=== PATIENT | male | born 1965 | race Caucasian/White ===

== ENCOUNTER 2018-11-14 19:57 | Emergency (ER) | payer OTHER, SELFPAY ==
[2018-11-14 19:58] VITALS: BP 137/75; PULSE 81; RESP 18; TEMP 36.6; O2SAT 100; BMI 29.2
[2018-11-14 20:04] LABS: Bacteria 0 SEEN /hpf (None Seen); Mucous, Urine 0 SEEN /hpf (<or=2+); White Blood Cells 0 SEEN /hpf (0-5)
[2018-11-14 20:08] LABS: Color, Urine Yellow (Yellow); Glucose, Dipstick Normal (Normal); Ketone-Dipstick 15 mg/dl (Negative); Leukocyte Esterase-Dipstick Negative /ul (Negative); Nitrite-Dipstick Negative (Negative); Occult Blood-Urine 10 /ul (Negative); Protein-Dipstick Negative (Negative); Specific Gravity, Urine 1.015 (1.002-1.030); Urine Bilirubin Dipstick Negative (Negative); Urine Clarity Sl. Cloudy (Clear); Urine Urobilinogen Normal (Normal)
[2018-11-14 20:25] LABS: Red Blood Cells-Urine 0-5 SEEN /hpf (0-5); Squamous Epithelial Cells - UA 0-5 SEEN /hpf (0-5)
--- NOTE | 2018-11-14 20:35 | CT_ITS ---
STUDY: CT ABDOMEN AND PELVIS WITHOUT CONTRAST REASON FOR EXAM: Male, 53 years old. Right flank pain. History of kidney stones RADIATION DOSAGE (If Supplied By Facility): CTDIvol = ( 12.00 ) mGy, DLP = ( 632.61 ) mGycm TECHNIQUE: Transaxial images were obtained from the dome of the diaphragm to the symphysis pubis without oral contrast, and without intravenous contrast. Sagittal and coronal images were reconstructed. Individualized dose optimization techniques were used for this CT. COMPARISON: None. FINDINGS: The visualized lung bases are unremarkable. The visualized portions of the heart are within normal limits. Normal liver. Normal gallbladder and extrahepatic biliary system. There is a benign calcified granuloma of the spleen. Normal pancreas. Normal bilateral adrenal glands. Right kidney is of normal size and cortical thickness. There are multiple nonobstructing renal calculi throughout the kidney. The largest in the lower pole measures 4 mm There is mild right hydronephrosis and ureteral dilatation to the ureter where there is nonobstructing 4 x 3 cm calculus (image 151, series 2) slightly superiorly there is a smaller calcification which may lie in or adjacent to the right ureter. The left kidney is of normal size and cortical thickness. There is multiple nonobstructing renal calculi. The largest, in the upper pole, measures 5 mm in diameter. There is no hydronephrosis. Normal visualized left ureter. Normal visualized stomach. Normal small intestine. Normal colon. The appendix is visualized and appears normal. Normal abdominal aorta. Normal inferior vena cava. Normal retroperitoneum. Normal urinary bladder. Normal prostate. There is no pelvic lymphadenopathy is a focal calcification mesentery adjacent to the sigmoid colon. No free air or free fluid is seen within the peritoneal cavity. Left inguinal hernia of omental fat. Umbilical hernia of omental fat. There are diffuse degenerative changes of the visualized lumbar spine. CT/Abdomen/Pelvis without Cont IMPRESSION: 1. Right UVJ calculus with mild to moderate obstructive uropathy. 2. Multiple bilateral nonobstructing renal calculi. 3. Degenerative changes of the lumbar spine. 4. L-spine granuloma in the spleen. Electronically Signed: Luis Tadeo DO at 21:10 EDT Tel [phone], Service support ,
[2018-11-14 20:40] LABS: Absolute Lymphocyte Count 1.78 X10^3/uL (0.83-4.51); Absolute Neutrophil Count 5.5 X10^3/uL (2.0-7.7); Basophil# 0.04 X10^3/uL; Basophil% 0.5 % (0-1); Eosinophil# 0.05 X10^3/uL; Eosinophils% 0.6 % (0-5); Hematocrit 40.4 % (40-54); Hemoglobin 13.4 g/dL (13.0-16.5); Lymphocyte # 1.78 X10^3/ul (4.0); Lymphocyte % 21.8 % (19-41); Mean Corp Hgb Conc 33.2 g/dL (32-36); Mean Corpuscular Hgb 30.5 pg (27.0-32.0); Mean Corpuscular Volume 91.8 fL (80-94); Mean Platelet Vol. 9.8 fl (6.2-12.0); Monocyte# 0.79 X10^3/uL; Monocyte% 9.7 % (0-10); NRBC Flagged by Analyzer 0 % (0-5); Neutrophil % 67.2 % (47-70); Platelet Count 215 K/mm3 (150-450); RBC Distribution Width CV 11.9 % (11.6-14.6); RBC Distribution Width SD 40.6 fl (35.1-43.9); White Blood Count 8.2 K/mm3 (4.4-11.0)
--- NOTE | 2018-11-14 20:46 | ED.VIS.GEN ---
History of Present Illness Chief Complaint: Flank Pain Informant: Patient Onset: Days - Onset 1 day November 11 Context: Sudden Onset Timing: Continuous, Waxes and wanes Quality: Pain and burning Location: Pain in the flank burning suprapubic Current Severity: Mild Maximum Severity: Severe Worsened by: Nothing Relieved by: Much improved with ibuprofen Associated Symptoms: Nausea Narrative: Patient is a 53-year-old male with no sniffing past medical history other than renal/ureteral lithiasis. He states he is past 20 stones. He is never had a CAT scan. He states this pain is different and persistent. He also complains of suprapubic burning sensation. The burning sensation not associated with urination. He denies fever chills. Does report nausea without vomiting. He denies cardiac respiratory symptoms. There is no history of trauma. He has no other complaints. Prior similar symptoms: Yes Recent Illness/Hospitalization: No - Past Medical History (1) Renal and ureteric calculus Status: Acute Past Medical History - Allergies and Home Meds Allergies/Adverse Reactions: Allergies No Known Allergies Allergy (Verified 11/14/18 20:00) Primary Care Physician: Fuad Landon MD [Primary Care Provider] - Prior records reviewed: No Past Medical History: - - Multiple kidney stones Surgical History: no surgical history Lives: Alone Smoking Status: Never smoker Alcohol: None Drugs: None Review of Systems General: Denies: Chills, Fever, Sweats Cardiovascular: Denies: Chest pain, Palpitations Respiratory: Denies: Dyspnea, Cough, Dyspnea on exertion Gastrointestinal: Reports: Abdominal pain, Nausea. Denies: Vomiting, Diarrhea, Constipation, Melena, Hematochezia, -, - Genitourinary: Denies: Dysuria, Hematuria, Frequency Musculoskeletal: Reports: Back pain. Denies: Myalgias, Arthralgias, Neck pain, Swelling, Extremity Pain, -, - Skin: Denies: Rash, Wounds Neurological: Denies: Headache, Weakness, Numbness Allergy: Denies: Uticaria, Swelling of the mouth, Swelling of the tongue Physical Exam Vital Signs/Narrative: Vital Signs Temp Pulse Resp BP Pulse Ox 11/14/18 19:58 97.9 F 81 18 137/75 H 100 Inital Vital Signs reviewed: Yes General: Well nourished, Well developed, - - Slightly uncomfortable Head: Normocephalic, Atraumatic Eyes: Perrl, EOMI ENT: Moist mucous membranes, No rhinorrhea Neck: Supple, Nontender, No lymphadenopathy, No JVD Cardiovascular: Regular rate, Regular rhythm, No murmurs, Normal S1, Normal S2 Respiratory: No distress, CTA bilaterally, Chest nontender Abdomen: Soft, Nontender, Nondistended, Normal bowel sounds Back: Nontender, Normal Inspection. Negative for: CVA tenderness Extremities: Nontender, No edema Skin: Normal color, No rash Neurological: Alert, Oriented x3, Cranial nerves II-XII grossly intact, Normal Strength, Normal Sensation, Normal Gait Psychological: Normal affect, Normal Mood Diagnostic/Tx/Re-eval Impressions Abdomen/Pelvis CT 11/14/18 20:35 IMPRESSION: 1. Right UVJ calculus with mild to moderate obstructive uropathy. 2. Multiple bilateral nonobstructing renal calculi. 3. Degenerative changes of the lumbar spine. 4. L-spine granuloma in the spleen. Electronically Signed: Luis Tadeo DO at 21:10 EDT Tel [phone], Service support , 11/14/18 20:35 Abdomen/Pelvis without Cont [CT] Stat Laboratory Results 11/14/18 11/14/18 11/14/18 20:00 20:20 20:20 WBC 8.2 RBC 4.40 L Hgb 13.4 Hct 40.4 MCV 91.8 MCH 30.5 MCHC 33.2 RDW Std Deviation 40.6 RDW Coeff of Aliya 11.9 Plt Count 215 MPV 9.8 Immature Gran % (Auto) 0.200 Neut % (Auto) 67.2 Lymph % (Auto) 21.8 [place] % (Auto) 9.7 Eos % (Auto) 0.6 Baso % (Auto) 0.5 Absolute Neuts (auto) 5.5 Absolute Lymphs (auto) 1.78 Nucleated RBC % 0 Sodium 138 Potassium 3.9 Chloride 106 Carbon Dioxide 27.0 Anion Gap 5 BUN 23 H Creatinine 1.83 H Estim Creat Clear Calc 50.29 Est GFR (MDRD) Af Amer 50 L Est GFR (MDRD) Non-Af 42 L BUN/Creatinine Ratio 12.6 Glucose 105 Calcium 9.0 Urine Color Yellow Urine Clarity Sl. Cloudy Urine pH 6.0 Ur Specific [place] 1.015 Urine Protein Negative Urine Glucose (UA) Normal Urine Ketones 15 H Urine Occult Blood 10 H Urine Nitrite Negative Urine Bilirubin Negative Urine Urobilinogen Normal Ur Leukocyte Esterase Negative Urine RBC 0-5 SEEN Urine WBC 0 SEEN Ur Squamous Epith Cells 0-5 SEEN Urine Bacteria 0 SEEN Urine Mucus [address] of the abdomen pelvis without contrast reveals a right UVJ stone which is the stone causing his symptoms. There is also multiple bilateral renal calculi noted. Of concern his creatinine is elevated to 1.83 with a GFR of 42. He states he took 3 ibuprofen tablets yesterday and 3 ibuprofen tablets today. One would not expect a total of 600 mg/day causing acute renal failure. Since there is only one small obstructing stone would not expect his creatinine to be elevated from 23. Since he has no medical problems he was instructed to follow-up with Dr. Anthony Merrill his primary care physician for outpatient testing and possible referral to nephrology. He was referred to urology with regards to the obstructing right UVJ stone and prescribed opiate analgesia since NSAIDs are contraindicated. - Medical Decision Making With persistent pain and burning with urination will obtain UA and appropriate blood work. Since he is never had a CAT scan and this pain is worse and more persistent will obtain CT of the abdomen pelvis without contrast to assess if there is a stone and more importantly the size and location. He declined pain medicine. Since an IV was not ordered he was given Zofran 4 mg ODT for his nausea. Charged home with referral to PCP for further testing to evaluate elevated creatinine and urology for his obstructing right UVJ stone and multiple bilateral renal calculi. ED Disposition - Plan for ED Patient: Disposition: Home or Assisted Living Diagnosis: Hydronephrosis with urinary obstruction due to ureteral calculus, Acute renal insufficiency Instructions: KIDNEY STONE w/ Colic, Renal Insufficiency Prescriptions: Oxycodone HCl/Acetaminophen [Percocet 5/325] 1 tab PO Q6H PRN PRN 5 Days #20 tab PRN Reason: Pain Score 1-10/10 Prescription Printed Referrals: Fuad Landon MD [Primary Care Provider] - 1 Week Jamar Colon MD [STAFF PHYSICIAN] - 5-7 Days
[2018-11-14 20:49] LABS: Anion Gap 5 (5-15); BUN 23 mg/dL (7-18); BUN/Creat Ratio 12.6 RATIO (10-20); Chloride 106 mmol/L (98-107); Creatinine, Serum 1.83 mg/dL (0.70-1.30); EST Glomerular Filtration Rate 42 mL/min (>60); Est Glom Filt Rate - Afr Amer 50 mL/min (>60); Estimated Creatinine Clearance 50.29 ml/min; Glucose 105 mg/dL (74-106); Potassium 3.9 mmol/L (3.5-5.1); Sodium Level 138 mmol/L (136-145)
[2018-11-14 22:13] VITALS: BP 133/85; PULSE 76; RESP 16; O2SAT 98
--- NOTE | 2018-11-14 22:13 | ED.RN ---
REVIEWED D/C INSTRUCTIONS, FOLLOW UP CARE, PRESCRIPTIONS, AND S/S THAT WOULD WARRANT A RETURN TO THE ED WITH PT. PT VERBALIZED AN UNDERSTANDING AND DENIES FURTHER QUESTIONS FOR THIS RN. PT SKIN P/W/D, RESP EVEN AND UNLABORED, PT A&O X 3, NO DISTRESS NOTED. PT AMBULATED OUT OF ED, GAIT STEADY.
== END 2018-11-14 22:14 | disposition home or self-care (01) ==
PROVIDERS: Emergency Provider Emergency Medicine; Family Provider Family Medicine; PCP Family Medicine
DX: N13.2 Hydronephrosis with renal and ureteral calculous obstruction (principal); N28.9 Disorder of kidney and ureter, unspecified; Z87.442 Personal history of urinary calculi
CPT/HCPCS: 74176; 80048; 81001; 85025; 99283; A4216

== ENCOUNTER 2022-02-22 18:26 | Emergency (ER) | payer BC, SELFPAY ==
[2022-02-22 18:27] VITALS: BP 171/92; PULSE 108; RESP 16; TEMP 35.8; O2SAT 98; BMI 30.9
--- NOTE | 2022-02-22 21:28 | EKG12_ITS ---
Test Reason : DYSRHYTHMIA Blood Pressure : / mmHG Vent. Rate : 107 BPM Atrial Rate : 107 BPM P-R Int : 146 ms QRS Dur : 108 ms QT Int : 336 ms P-R-T Axes : 050 071 039 degrees QTc Int : 448 ms Sinus tachycardia Otherwise normal ECG Confirmed by BERTA SANDOVAL, STAN ([id number]), multimedia editor [employer] ([id number]) on 02/24/2022 6:36:39 AM Referred By: ARSLAN Confirmed By:ZANA HAMPTON MD
--- NOTE | 2022-02-22 21:28 | CT_ITS ---
EXAM: CT ANGIOGRAPHY CHEST, ABDOMEN AND PELVIS WITH INTRAVENOUS CONTRAST CLINICAL INDICATION: back and left extremity pain/weakness TECHNIQUE: Helically acquired angiography images were obtained of the chest, abdomen and pelvis with intravenous contrast. CTDIvol = ( 13.55 ) mGy, DLP = ( 1143.14 ) mGycm This CT exam was performed using one or more of the following dose reduction techniques: automated exposure control, adjustment of the mA and/or kV according to patient size, and/or use of iterative reconstruction technique. This report was created using [employer] report generation technology. MIP reconstructed images were created and reviewed. CONTRAST: IV 100mL Isovue-370 COMPARISON: None. FINDINGS: VASCULATURE: AORTA: No aortic dissection or aneurysm. PULMONARY ARTERIES: No PE. Normal in caliber. No obvious central pulmonary embolism although this study was not performed with the pulmonary embolism protocol. GREAT VESSELS OF AORTIC ARCH: Unremarkable. Normal in caliber. No dissection. CELIAC TRUNK AND MESENTERIC ARTERIES: No acute findings. No occlusion or significant stenosis. No dissection. RENAL ARTERIES: No acute findings. No occlusion or significant stenosis. No dissection. ILIAC ARTERIES: No acute findings. No occlusion or significant stenosis. No dissection. CHEST: LUNGS AND PLEURAL SPACES: No consolidation. Small calcified granuloma at the left lower lobe. No mass. No pleural effusion or thickening. No pneumothorax. HEART: Unremarkable. Heart size is normal. No pericardial effusion. MEDIASTINUM: Unremarkable. No mediastinal or hilar adenopathy. Esophagus is unremarkable. No hiatal hernia. THYROID: Unremarkable. No thyroid lesions. ABDOMEN: LIVER: Hepatic steatosis. Homogeneous. No focal mass. GALLBLADDER AND BILE DUCTS: Unremarkable. No calcified gallstones. No gallbladder distention or wall edema. No intra- or extrahepatic biliary ductal dilation. PANCREAS: Unremarkable. No focal cystic or solid mass. SPLEEN: Unremarkable. Normal size without focal cystic or solid mass. ADRENALS: Unremarkable. No nodules. KIDNEYS AND URETERS: 6 mm nonobstructing calyceal calculus at the left interpolar level. Other smaller left and right renal calyceal calculi are nonobstructing also. No other renal abnormalities. STOMACH AND BOWEL: Unremarkable. No stomach or bowel distention. No focal inflammatory change. PELVIS: APPENDIX: No evidence of acute appendicitis. BLADDER: Unremarkable. REPRODUCTIVE: Unremarkable as visualized. No mass. CHEST, ABDOMEN and PELVIS: INTRAPERITONEAL SPACE: Unremarkable. No ascites or other fluid collection. No free air. BONES/JOINTS: Degenerative changes of the spine. No suspicious lytic or blastic abnormality. SOFT TISSUES: Small fat-containing left inguinal hernia. LYMPH NODES: Unremarkable. No enlarged lymph nodes. CT/CTA Chst, Abd, Pel W and/or WO IMPRESSION: 1. No aortic dissection. 2. No acute cardiopulmonary disease. 3. 6 mm nonobstructing calyceal calculus at the left interpolar level. Other smaller left and right renal calyceal calculi are nonobstructing also. 4. No other acute or inflammatory abdominal pelvic disease or bowel obstruction. Electronically Signed: Bart Sutton MD at 22:57 EST ,
[2022-02-22 21:44] LABS: Bacteria 0 SEEN /hpf (None Seen); Mucous, Urine 0 SEEN /hpf (<or=2+); Red Blood Cells-Urine 0 SEEN /hpf (0-5); Squamous Epithelial Cells - UA 0 SEEN /hpf (0-5); White Blood Cells 0 SEEN /hpf (0-5)
[2022-02-22 21:49] LABS: Absolute Lymphocyte Count 2.49 X10^3/uL (0.83-4.51); Absolute Neutrophil Count 4.3 X10^3/uL (2.0-7.7); Basophil# 0.05 X10^3/uL; Basophil% 0.7 % (0-1); Eosinophil# 0.06 X10^3/uL; Eosinophils% 0.8 % (0-5); Hematocrit 48.2 % (40-54); Hemoglobin 15.7 g/dL (13.0-16.5); Lymphocyte # 2.49 X10^3/ul (0.83-4.51); Lymphocyte % 33.4 % (19-41); Mean Corp Hgb Conc 32.6 g/dL (32-36); Mean Corpuscular Hgb 30.3 pg (27.0-32.0); Mean Corpuscular Volume 93.1 fL (80-94); Mean Platelet Vol. 9.1 fl (6.2-12.0); Monocyte# 0.59 X10^3/uL; Monocyte% 7.9 % (0-10); NRBC Flagged by Analyzer 0 % (0-5); Neutrophil # 4.25 X10^3/uL (2.7-7.7); Neutrophil % 56.9 % (47-70); Platelet Count 287 K/mm3 (150-450); RBC Distribution Width CV 12.1 % (11.6-14.6); RBC Distribution Width SD 41.5 fl (35.1-43.9); Red Blood Count 5.18 M/mm3 (4.6-6.2); White Blood Count 7.5 K/mm3 (4.4-11.0)
[2022-02-22 21:49] LABS: Color, Urine Yellow (Yellow); Glucose, Dipstick Normal (Normal); Ketone-Dipstick 5 mg/dl (Negative); Leukocyte Esterase-Dipstick Negative /ul (Negative); Nitrite-Dipstick Negative (Negative); Occult Blood-Urine Negative /ul (Negative); Protein-Dipstick 15 mg/dl (Negative); Urine Bilirubin Dipstick Negative (Negative); Urine Clarity Clear (Clear); Urine Urobilinogen Normal (Normal)
[2022-02-22 22:12] LABS: Anion Gap 6 (5-15); BUN 15 mg/dL (7-18); BUN/Creat Ratio 14.4 RATIO (10-20); Calcium,Total 9.5 mg/dL (8.5-10.1); Chloride 106 mmol/L (98-107); Creatinine, Serum 1.04 mg/dL (0.70-1.30); EST Glomerular Filtration Rate 79 mL/min (>60); Est Glom Filt Rate - Afr Amer 95 mL/min (>60); Estimated Creatinine Clearance 85.48 ml/min; Glucose 97 mg/dL (74-106); Potassium 3.8 mmol/L (3.5-5.1); Sodium Level 141 mmol/L (136-145); Troponin-I HS < 3 pg/mL (3.0-78.0)
[2022-02-22 23:00] VITALS: RESP 18
--- NOTE | 2022-02-22 23:32 | EDS_ITS ---
HPI History of Present Illness Chief Complaint: Back Informant: patient Onset/Context/Timing Onset: Days Context: Gradual Onset Narrative Narrative: Patient presents with generalized weakness, back pain, left arm pain, left leg pain and weakness. Patient states he has not felt well for the past 2 weeks and thought maybe he had a little viral infection. He continues to have some generalized weakness from this. Last couple days he is noted some pain between his shoulder blades. Today the pain radiated down into his left upper arm. He has also had some pain in his left leg with some mild weakness. He states it feels like sciatica that he has had in the past, although mild at this point. [facility] Medical History Kidney stones Home Medications fluoxetine 10 mg capsule 10 mg PO DAILY 11/14/18 [History Last Taken Unknown] Allergy/AdvReac Type Severity Reaction Status Date / Time No Known Allergies Allergy Verified 02/22/22 18:27 Social History Smoking Status: Never smoker ROS ROS ED Constitutional Constitutional ED: Denies chills or fever(s) Eyes Eyes: Denies change in vision or discharge from eye(s) ENT ENT ED: Denies discharge from eye(s), rhinorrhea or sore throat Cardiovascular Cardiovascular: Denies chest pain or palpitations Respiratory/Chest Respiratory/Chest: Denies cough or dyspnea Gastrointestinal Gastrointestinal: Denies abdominal pain, diarrhea, nausea or vomiting Genitourinary Genitourinary ED: Denies difficulty urinating or dysuria Musculoskeletal Musculoskeletal: Reports back pain and extremity pain Integumentary Denies Abrasions or rash Neurologic Neurologic: Reports weakness; Denies headache(s) Psychiatric Psychiatric: Denies anxiety or depression Allergic/Immunologic Allergic/Immunologic ED: Denies lip swelling or urticaria EXAM Physical Exam Const Vital Signs: 02/22/22 18:27 02/22/22 23:00 02/22/22 23:39 Temperature 96.5 F L Temperature Source Temporal Pulse Rate 108 H Respiratory Rate 16 18 18 Blood Pressure 171/92 H Blood Pressure Mean 118 Pulse Ox 98 Oxygen Delivery Method Room Air Positive well nourished and well developed General Appearance ED: well developed HEENT Reports normocephalic and head/scalp atraumatic Eyes PERRL and EOMs intact bilaterally Neck supple Chest Wall inspection of chest normal and palpation of chest normal Resp normal respiratory effort and clear to auscultation bilaterally Cardio regular rate and regular rhythm Cardio Narrative: Strong and equal peripheral pulses throughout. Rate: other GI normal to inspection, nondistended, normoactive bowel sounds Palpation: soft Back/Spine no CVA tenderness Extremity normal to inspection Neuro oriented x3 and no sensory deficits noted Neuro Narrative: NIH equals 0. Sensorium / Orientation: alert Motor Exam: strength 5/5 throughout Psych mental status grossly normal Skin no rashes or lesions noted MDM MDM MDM Narrative Medical decision making narrative: Lab work obtained along with urinalysis. CTA of the chest, abdomen, and pelvis obtained to rule out aortic dissection or aneurysm. Lab Data Attestation: I reviewed the patient's lab results. Labs: Laboratory Results - last 24 hr 02/22/22 02/22/22 02/22/22 21:35 21:35 21:38 WBC 7.5 RBC 5.18 Hgb 15.7 Hct 48.2 MCV 93.1 MCH 30.3 MCHC 32.6 RDW Std Deviation 41.5 RDW Coeff of Aliya 12.1 Plt Count 287 MPV 9.1 Immature Gran % (Auto) 0.300 Neut % (Auto) 56.9 Lymph % (Auto) 33.4 [place] % (Auto) 7.9 Eos % (Auto) 0.8 Baso % (Auto) 0.7 Absolute Neuts (auto) 4.3 Absolute Lymphs (auto) 2.49 Nucleated RBC % 0 Sodium 141 Potassium 3.8 Chloride 106 Carbon Dioxide 29.0 Anion Gap 6 BUN 15 Creatinine 1.04 Estim Creat Clear Calc 85.48 Est GFR (MDRD) Af Amer 95 Est GFR (MDRD) Non-Af 79 BUN/Creatinine Ratio 14.4 Glucose 97 Calcium 9.5 Troponin I High Sens < 3 L Urine Color Yellow Urine Clarity Clear Urine pH 6.0 Ur Specific [place] 1.020 Urine Protein 15 H Urine Glucose (UA) Normal Urine Ketones 5 H Urine Occult Blood Negative Urine Nitrite Negative Urine Bilirubin Negative Urine Urobilinogen Normal Ur Leukocyte Esterase Negative Urine RBC 0 SEEN Urine WBC 0 SEEN Ur Squamous Epith Cells 0 SEEN Urine Bacteria 0 SEEN Urine Mucus 0 SEEN Radiography Diagnostic Testing: Clinical Impression(s) from Imaging Studies Chest/Abdomen/Pelvis CTA 02/22/22 21:28 IMPRESSION: 1. No aortic dissection. 2. No acute cardiopulmonary disease. 3. 6 mm nonobstructing calyceal calculus at the left interpolar level. Other smaller left and right renal calyceal calculi are nonobstructing also. 4. No other acute or inflammatory abdominal pelvic disease or bowel obstruction. Electronically Signed: Bart Sutton MD at 22:57 EST Reading Location ID and State: [facility] / [place] Tel , Service support , EKG Initial EKG: Attestation: I personally reviewed and interpreted this EKG as follows: Interpretation: Sinus Tachycardia (Sinus tach at 107. No acute ischemia.) Treatment and Re-Evaluation Narrative: CBC and chemistry studies unremarkable. Troponin is less than 3. Urinalysis reveals no hematuria and no sign of infection. CTA of the chest, abdomen, and pelvis obtained and reveals no evidence of aortic dissection or aortic abnormality. No acute cardiopulmonary disease. There is a 6 mm nonobstructing calculus in the left kidney. On repeat evaluation patient resting comfortably. Test results discussed with him. He is reassured with these findings and will continue to monitor his symptoms. Return instructions given. Discharge Plan Triage Chief Complaint: Back ED Provider: Michelle Calvo Dx/Rx/DC Orders Clinical Impression: Back pain, Extremity pain Instructions: ED Back and Neck Pain, General Prescriptions: No Action fluoxetine 10 MG capsule 10 mg PO DAILY Primary Care Provider: Monika Marcus Referrals: Monika Marcus, [Primary Care Provider] - 3-5 Days if not improving Disposition Disposition: Home, Self Care Discharge Date/Time: 02/22/22 23:44
[2022-02-22 23:39] VITALS: RESP 18
== END 2022-02-22 23:44 | disposition home or self-care (01) ==
PROVIDERS: Emergency Provider Emergency Medicine; PCP Internal Medicine; Visit Provider Emergency Medicine
DX: M54.9 Dorsalgia, unspecified (principal); M79.605 Pain in left leg
CPT/HCPCS: 71275; 74174; 80048; 81001; 84484; 85025; 93005; 99284; Q9967; A4216